=== PATIENT | female | born 1975 | race Caucasian/White ===

== ENCOUNTER 2018-03-06 23:12 | Emergency (ER) | payer SELFPAY ==
[2018-03-07] MEDS ORDERED: Acetaminophen 500 MG TAB ONE (00:17)
[2018-03-07] MEDS ORDERED: Lidocaine 1% 20 ML MDV ONE (00:26)
[2018-03-07 00:35] LABS: Pregnancy Test - Urine (BHCG) Negative (Negative); Pregu Control Background? CLEAR/WHITE (CLR/WHITE); Pregu Control Bar Appear? YES (CONTROL BAR); Specific Gravity 1.031 (1.002-1.036)
[2018-03-07] MEDS ORDERED: Clindamycin 150 MG CAP ONE (01:10)
== END 2018-03-07 01:14 | disposition home or self-care (01) ==
LOC: SCSER 23:12
DX: N61.1 Abscess of the breast and nipple (principal); F32.9 Major depressive disorder, single episode, unspecified; F17.210 Nicotine dependence, cigarettes, uncomplicated
CPT/HCPCS: 10060; 81025; 87070; 87205; J2001